=== PATIENT | female | born 1950 | race Caucasian/White ===

== ENCOUNTER 2018-06-05 06:39 | Inpatient (IN) | payer OTHER ==
[~2018-06-05] VITALS: Ht 165.1 cm; Wt 131.6 kg
--- NOTE | ~2018-06-05 | PATH ---
[facility] [address] [place] [address] PATHOLOGY RPT PROCEDURE Name: GEOVANNY ESTEBAN Room #: 349-I [facility] IN .R.#: [id number] Admission: 06/13/18 Date of : 46 Discharge: 06/17/18 Report #: [id number] Path Case #: [id number] [facility] Accession Number: [id number] . 01 Material submitted: . GASTRIC SLEEVE . 01 Clinical history: . Morbid obesity . 02 Diagnosis: Stomach, partial stomach, laparoscopic sleeve gastrectomy: - Mild congestion and reactive changes, history of morbid obesity. - Negative for intestinal metaplasia, atrophy or dysplasia. (IUV:pit 06/16/2018) QTP/06/16/2018 . 02 Electronically signed: . Anay Carrizales MD, Pathologist NPI- [id number] . 01 Gross description: . The specimen is received in formalin, labeled "Yfn Esteban, gastric sleeve", is a portion of stomach measuring 21.5 x 5.5 x 2.0 cm The margin is closed by a staple line. The serosa is read-pink and smooth. The rugae folds are read-pink. No discrete polyps, ulcers or masses identified. Core Dropper tissue is submitted in A1-A3. (SWS; 06/13/2018) SHS/SHS . 02 Pathologist provided ICD-10: K31.89, E66.01 . 02 CPT . 700688 Specimen Comment: A courtesy copy of this report has been sent to Specimen Comment: [phone], . Specimen Comment: Report sent to / DR PERES Specimen Comment: A duplicate report has been generated due to demographic updates. Performed at: 01 [place] [id number] [id number] MD Connor Navarro MD Phone: [phone] Performed at: [address] [id number] [address] [address] PATHOLOGY RPT PROCEDURE Name: TIMMY ESTEBANLEY Room #: 349-I DIS IN M.R.#: [id number] Admission: 06/13/18 Date of : 46 Discharge: 06/17/18 Report #: [id number] Path Case #: [id number] MD Anay Carrizales MD Phone: [phone]
--- NOTE | ~2018-06-05 | EKG ---
[address] [address] ELECTROCARDIOGRAM REPORT Name: GEOVANNY CROOK Room #: 349-I ADM IN M.R.#: [id number] Admission: 06/13/18 Attend Phys: Abel Khan MD, F Discharge: Date of : 46 Report #: [id number] THIS REPORT FOR: //name// [facility] Test Date: 2018-06-13 Test Time: 15:09:37 Pat Name: GEOVANNY CROOK Department: Room: 349 Gender: F Sheet Roller Operator: THADDEUS : 1950 Requested By: Abel Khan Order Number: [id number] MD: Barney Mathis Measurements Intervals [place] Rate: 78 P: 64 [place]: 175 QRS: 46 QRSD: 90 T: 43 QT: 415 QTc: 473 Interpretive Statements Sinus rhythm Low voltage, precordial leads Borderline T abnormalities, anterior leads Baseline wander in lead(s) V2 No previous ECG available for comparison Electronically Signed On 06-15-2018 20:18:46 INVENTORY MANAGEMENT SPECIALIST by Barney Mathis [email or web address] <ELECTRONICALLY SIGNED> By: Barney Mathis MD 06/15/182017 1509 1509 Barney Mathis MD /JULIANA
--- NOTE | ~2018-06-05 | HC ---
[facility] [place] [address] CONSULTATION Name: GEOVANNY CROOK Room #: 349-I ADM IN .R.#: [id number] Admission: 06/13/18 Attend Phys: Abel Khan MD, F Discharge: Date of : 48 Report #: [id number] THIS REPORT FOR: //name// CC: FAM unknown SUNDAY JAZMÍN DO Abel Khan DATE OF SERVICE: 06/15/2018 HISTORY OF PRESENT ILLNESS: The patient is a 68-year-old single white female who I was asked to see in the hospital after she developed atrial fibrillation. The history is obtained from the patient as well as the current chart. No old records available. The patient has a long history of heart disease. She apparently had a stent placed in the right coronary artery in 2013 at [place]. She has been followed by my partner, Dr. Vinny Bradley. She is not very active because of her large size. She is 5 feet 5 inches and weighs almost 280 pounds. She has a long history of intermittent atrial fibrillation. She apparently failed radiofrequency ablation at in the past. She has been chronically anticoagulated. She apparently had a stroke in the past and was given TPA at [facility], has a residual only drooping of the right lip. At the time of stroke, she was found to have a small meningioma which was not operated on. Because of the obesity, the patient was referred for bariatric surgery. She apparently had a nuclear stress test 6 months ago, showed no significant ischemia. She apparently saw Dr. Bradley recently prior to surgery and he recommended switching from Long acting diltiazem to metoprolol tartrate prior to surgery. She was taken off Eliquis 3 days prior to surgery. She was taken off of aspirin 4 days prior to surgery. She was admitted to [facility] 2 days ago and underwent bariatric surgery by Dr. Khan. She apparently tolerated the surgery well. However, after surgery, she went in atrial fibrillation. Cardiology consultation was requested. She does have occasional chest burning, although it is nonexertional and no radiation of the pain. She has had no increasing shortness of breath. She does get short of breath with exertion. She does note the irregular heartbeat and has had no lightheadedness or syncope. She has had no increased edema. PAST MEDICAL HISTORY: Otherwise significant for hysterectomy, cholecystectomy, hypertension, hyperlipidemia. MEDICATIONS AT HOME: Include Eliquis which was stopped 4 days ago, Multaq twice a day, potassium, spironolactone, lisinopril, aspirin, metoprolol tartrate. She does wear a CPAP for sleep apnea. ALLERGIES: She has previous intolerance to MORPHINE and PENICILLIN. FAMILY HISTORY: Positive for heart disease. [address] [address] CONSULTATION Name: GEOVANNY CROOK [facility] M.R.[facility] [id number] Admission: 06/13/18 Attend Phys: Abel Khan MD, F Discharge: Date of : 46 Report #: [id number] SOCIAL HISTORY: She is , lives in [place] by herself. Quit smoking years ago. No alcohol abuse. REVIEW OF SYSTEMS: She has had no history of asthma, peptic ulcer disease, liver disease, kidney disease, psychiatric illness or chronic skin condition. PHYSICAL EXAMINATION: GENERAL: Revealed an obese elderly female sitting in bed. She appeared in no acute distress. VITAL SIGNS: Showed a blood pressure of 140/60, pulse 70. She is afebrile. HEENT: She was anicteric, conjunctiva pink. Mucous membranes moist. NECK: Veins difficult to assess due to obesity. CHEST: Clear to auscultation. CARDIAC: Regular rate and rhythm. ABDOMEN: Obese, soft, nontender. EXTREMITIES: Had trace edema. SKIN: Cool and dry. NEUROLOGIC: Nonfocal. LABORATORY DATA: Her ECG on admission showed a sinus rhythm. Last night, the patient went into a rapid atrial fibrillation. Today, she appears to be in sinus rhythm. Her workup so far, she had lab work yesterday, BUN 20, creatinine 1.6, glucose 136. Troponin 0.06. White blood cell count 10.7, hemoglobin 13.9. IMPRESSION AND RECOMMENDATIONS: 1. Atrial fibrillation. I would recommend resuming Multaq, metoprolol. I would resume Eliquis when felt to be okay from surgery standpoint. 2. Hypertension. The patient has been on beta gabriella. 3. Coronary artery disease. Previous stent. 4. Obesity. Previous bariatric surgery. 5. History of meningioma. 6. Previous stroke. The patient is anticoagulated. By: [id number] Fermín Torres MD, FACC /nt
--- NOTE | ~2018-06-05 | EKG ---
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
--- NOTE | ~2018-06-05 | EKG ---
[place] [address] [place] [address] ELECTROCARDIOGRAM REPORT Name: GEOVANNY CROOK Room #: 349-I ADM IN M.R.#: [id number] Admission: 06/13/18 Attend Phys: Abel Khan MD, F Discharge: Date of : 46 Report #: [id number] THIS REPORT FOR: //name// [facility] Test Date: 2018-06-17 Test Time: 08:11:10 Pat Name: GEOVANNY CROOK Department: Room: 349 I Gender: F Cost Recovery Technician: ZACHARIAH : 1950 Requested By: Fermín Torres Order Number: [id number] MD: Olivier Peter Measurements Intervals [place] Rate: 60 P: 47 OR: 167 QRS: 43 QRSD: 100 T: 72 QT: 456 QTc: 456 Interpretive Statements Sinus rhythm Low voltage, precordial leads Borderline T abnormalities, anterior leads Compared to ECG 06/14/2018 22:50:47 Atrial fibrillation no longer present Electronically Signed On 06-17-2018 9:25:41 SWIM INSTRUCTOR by Olivier Peter [email or web address] <ELECTRONICALLY SIGNED> By: Olivier Peter MD, [facility] 06/17/18924 0 0 Olivier Peter MD, [facility] /EPI
--- NOTE | ~2018-06-05 | EKG ---
[address] [place] [address] ELECTROCARDIOGRAM REPORT Name: GEOVANNY CROOK Room #: 349-I ADM IN M.R.#: [id number] Admission: 06/13/18 Attend Phys: Abel Khan MD, F Discharge: Date of : 48 Report #: [id number] THIS REPORT FOR: //name// [facility] Test Date: 2018-06-14 Test Time: 22:50:47 Pat Name: GEOVANNY CROOK Department: Room: 349 Gender: F X Ray Service Technician: : 1950 Requested By: Mia Portillo Order Number: [id number] MD: Barney Mathis Measurements Intervals [place] Rate: 147 P: [place]: QRS: 49 QRSD: 80 T: -1 QT: 299 QTc: 468 Interpretive Statements Atrial fibrillation Low voltage, precordial leads Borderline T abnormalities, inferior leads No previous ECG available for comparison Electronically Signed On 06-15-2018 20:45:16 WET COTTON FEEDER by Barney Mathis [email or web address] <ELECTRONICALLY SIGNED> By: Barney Mathis MD 06/15/182044 49 49 Barney Mathis MD /JULIANA
--- NOTE | ~2018-06-05 | O ---
[facility] [place] [address] [place] [address] OPERATIVE REPORT Name: GEOVANNY CROOK Room #: 349-I ADM IN M.R.#: [id number] Admission: 06/13/18 Attend Phys: Abel Khan MD, F Discharge: Date of : 48 Report #: [id number] THIS REPORT FOR: //name// CC: Sidra Khan MD SURGEON: Abel Khan MD SUPERVISOR FISH BAIT PROCESSING: Michael Mace DO PREOPERATIVE DIAGNOSES: 1. Morbid obesity (body mass index 46). 2. Obstructive sleep apnea. 3. Atrial fibrillation/atrial flutter. 4. History of cerebrovascular accident. 5. Coronary artery disease. 6. Hyperlipidemia. POSTOPERATIVE DIAGNOSES: 1. Morbid obesity (body mass index 46). 2. Extensive intra-abdominal adhesions. 3. Recurrent incarcerated incisional ventral hernia. 4. Obstructive sleep apnea. 5. Atrial fibrillation/atrial flutter. 6. History of cerebrovascular accident. 7. Coronary artery disease. 8. Hyperlipidemia. PROCEDURES: 1. Laparoscopic sleeve gastrectomy with EGD. 2. Extensive laparoscopic lysis of adhesions. 3. Laparoscopic primary repair of recurrent incarcerated incisional ventral hernia. ANESTHESIA: General endotracheal anesthesia and local anesthetic. ESTIMATED BLOOD LOSS: 5 mL. SPECIMEN: Lateral stomach. COMPLICATIONS: None appreciated. INDICATIONS FOR PROCEDURE: This is a 68-year-old female patient of Dr. Sidra Tom and Dr. Vinny Bradley, who stands 5 feet 5 inches and weighed 291 pounds at her last office visit with a BMI of 46.3. Her maximum weight is 295 pounds. The patient has had difficulty with her weight for as long as she can [facility] [address] [place] [address] OPERATIVE REPORT Name: GEOVANNY CROOK Room #: 349-I ADM IN .R.#: [id number] Admission: 06/13/18 Attend Phys: Abel Khan MD, F Discharge: Date of : 46 Report #: [id number] remember. She has tried numerous weight loss programs and plans including specialized diets such as Weight Watchers and specialized exercises. The most weight she has lost is 40 pounds. Any amount of weight she has lost, she has quickly regained plus additional weight after stopping the modality. The patient has weight associated comorbid conditions as listed above. She has been cleared from a multidisciplinary standpoint for bariatric surgery. She presents today for laparoscopic sleeve gastrectomy with EGD. OPERATIVE FINDINGS: On EGD, the patient had a normal appearing esophagus down the GE junction and Z-line. The stomach and duodenum were without polyps, masses, diverticula, or ulcers. On retroflexion of the scope, there was no evidence for a hiatal hernia. Upon entrance into the abdominal cavity, the patient had significant intra-abdominal adhesions involving the midline and bilateral subcostal incision. At the apex of the midline incision, where it met up with the subcostal incision, two 1 cm defects were present that contained intra-abdominal and abdominal wall fat with no bowel involvement. Extensive lysis of the adhesions was necessary in order to place the laparoscopic ports. The stomach was enlarged. The liver, small bowel, and colon in the surrounding area appeared otherwise normal with no other significant intra-abdominal pathology. The sleeve staple line was located 4 cm lateral/proximal to the pylorus, 3 cm lateral to the incisura of the stomach, and 1 cm lateral to the GE junction. Immediately after applying Tisseel to the gastric sleeve staple line, the gastroscope was used to gently insufflate carbon dioxide into the stomach/sleeve whereby no air bubbles were seen forming in the Tisseel, indicative of a negative leak test. Endoluminally, the sleeve had a smooth contour with no hemorrhage. The excised stomach held 1000 mL on the backtable. DESCRIPTION OF PROCEDURE IN DETAIL: After the risks, benefits, and expectations of the operation were discussed in detail with the patient, informed consent was obtained. The patient was identified in the preoperative holding area. She was given IV antibiotics as documented in the chart in line with [facility] metrics. The patient was then taken to the operating room and she was placed in the supine position. SCDs were placed on the patient's bilateral lower extremities and pneumatic compression was initiated. The patient was then given IV sedation and she was intubated without incident. An orogastric tube and bite block were placed by Anesthesia under my direction without difficulty. The patient was placed in the low lying dorsal lithotomy position [facility]. Her abdomen was prepped and draped in the standard sterile fashion. A time-out was performed to identify the correct patient and procedure. [address] [address] OPERATIVE REPORT Name: GEOVANNY CROOK Room #: 349-I ADM IN M.R.#: [id number] Admission: 06/13/18 Attend Phys: Abel Khan MD, F Discharge: Date of : 46 Report #: [id number] EGD was performed first. The gastroscope was inserted into the patient's oropharynx and then passed down the esophagus into the stomach and beyond the pylorus to the third portion of the duodenum. The scope was then slowly withdrawn. With the scope withdrawn into the antrum, the scope was retroflexed and a retrograde view of the cardia was seen. The scope was then straightened and slightly withdrawn. It was left within the stomach to serve as a 34-Chinese bougie. The stomach was then decompressed with the orogastric tube. Local anesthetic was infiltrated into the skin and subcutaneous tissue in the left mid abdomen where a small transverse incision was made. A 5 mm Visiport was placed intraperitoneally with a 0-degree angled laparoscope. Pneumoperitoneum was achieved with insufflation of carbon dioxide to 15 mmHg. A 30-degree angled laparoscope was then inserted. Additional 5 mm ports were placed at the left supraumbilical area as well as left lateral abdomen under direct visualization after local anesthetic was infiltrated into the skin and subcutaneous tissue and appropriately sized incisions were made. Operative findings were as noted above. The omental adhesions to the anterior abdominal wall were carefully taken down with blunt dissection and judicious use of the ultrasonic dissector after ensuring no bowel involvement. Dissection was carried across the midline where an appropriate area was chosen for placement of the 15 mm ports. The port was placed under direct visualization using the same technique. Additional adhesions were taken down in the left upper quadrant in a similar fashion. Again, there was no bowel involvement. After appropriate takedown of the adhesions, placement of the Portia liver retractor was undertaken next. A subxiphoid transverse 5 mm incision was made after local anesthetic was infiltrated into the skin and subcutaneous tissue. The Portia liver retractor was advanced transfascially after creating passageway with a 5 mm obturator. The retractor was held in place with the Iron Refrigerating Engineer Head apparatus. The patient was placed in the reverse Trendelenburg position. The gastroscope was adjusted by Anesthesia under my direction such that the scope would lie along the lesser curvature of the stomach and again would serve as a 34-Chinese bougie. The gastrosplenic ligament and short gastric vessels were then carefully divided with the ultrasonic dissector with good hemostasis along the greater curvature of the stomach up to the GE junction. There was no evidence for hiatal hernia. The gastrocolic ligament was divided in a similar fashion down to an area that was measured to be 4 cm lateral/proximal to the pylorus. The stomach was then rotated medially to ensure no posterior attachments were present. The gastroscope was adjusted by Anesthesia one final time and the orogastric tube was removed under my direction. The gastric sleeve was then created with a 60 mm powered endoscopic RAMOS stapler. All staple loads were buttressed with Mary Jo-Strips. The staple line started distally, moving proximally. The initial two firings were with black loads with the remaining loads being green loads. [address] [address] OPERATIVE REPORT Name: GEOVANNY CROOK Room #: 349-I [facility] IN .R.#: [id number] Admission: 06/13/18 Attend Phys: Abel Khan MD, F Discharge: Date of : 46 Report #: [id number] After transection of the lateral stomach, it was removed through the 15 mm port site. An 0 PDS suture was then placed with the Darvin laparoscopic fascial closure device. The suture was tagged and the port was replaced. The leak test was performed next. A 10 mL of Tisseel was evenly applied to the gastric sleeve staple line using the Truviso aerosolizer. Immediately after doing so, the gastroscope was used to gently insufflate air into the sleeve and slowly withdrawn the scope. No air bubbles were seen forming within the Tisseel laparoscopically. Other findings were as noted above. The scope was fully withdrawn. Primary repair of the incarcerated recurrent incisional ventral hernia was undertaken next. This was attempted to have been repaired in the past, although no mesh was present in this area. The intra-abdominal fat and abdominal wall fat that were incarcerated within the two small defects were carefully dissected free and fully reduced. The fascial edges were then skeletonized and well visualized. [id number]-[id number] 0 PDS sutures were placed x 2 to close the defects. The sutures were tied under direct visualization with good closure after decreasing the intra-abdominal pressure to 10 mmHg. The 15 mm port was then removed and the suture was tied under direct visualization to ensure no incorporation of intra-abdominal content. The abdominal cavity was then desufflated and the ports were removed. Interrupted subcuticular 4-0 Monocryl sutures and Dermabond were used to close the skin incisions. The patient tolerated the procedure well. She was awakened, extubated, and taken to the recovery room in stable condition with no apparent intraoperative complications. <ELECTRONICALLY SIGNED> By: Abel Khan MD, FACS 06/15/18 2218 1444 1526 Abel Khan MD, FACS /nt
[2018-06-11] MEDS ORDERED: CEFUROXIME250 MG PO (10:09)
[2018-06-11] MEDS ORDERED: ELIQUIS2.5 MG PO (10:10)
[2018-06-11] MEDS ORDERED: MULTAQ400 MG PO (10:11)
[2018-06-11] MEDS ORDERED: POTASSIUM20 PO (10:11)
[2018-06-11] MEDS ORDERED: SPIRONOLACTONE25 M1 PO (10:11)
[2018-06-11] MEDS ORDERED: LOPRESSOR50 MG PO (10:11)
[2018-06-11] MEDS ORDERED: LISINOPRIL20 MG PO (10:12)
[2018-06-11] MEDS ORDERED: CHILDREN'S ASPI81 M1 PO (10:12)
[2018-06-11] MEDS ORDERED: FLONASE 0.05%50 MCG NASAL (10:16)
[2018-06-11] MEDS ORDERED: UNICOMPLEX M TA1 TA1 PO (10:41)
[2018-06-11] MEDS ORDERED: CRANBERRY300 MG PO (10:42)
[2018-06-11] MEDS ORDERED: OMEGA-31000 M1 PO (10:46)
[2018-06-11] MEDS ORDERED: CALCIUM MAGNES1 EACH PO (10:46)
[2018-06-11] MEDS ORDERED: VITAMIN B-12500 MCG PO (10:47)
[2018-06-11] MEDS ORDERED: LOPRESSOR100 M1 PO (11:01)
[2018-06-13 08:36] VITALS: BP 127/59
[2018-06-13 14:34] VITALS: BP 130/61
[2018-06-13 22:49] VITALS: BP 147/44
[2018-06-14 05:49] LABS: ABSOLUTE NEUTROPHILS 9.5 thou/uL (1.4-8.2); BASOPHILS 0.1 % (0.0-2.0); HEMATOCRIT 40.2 % (37.0-47.0); HEMOGLOBIN 13.9 gm/dL (12.0-15.0); LYMPHOCYTES 6.5 % (24.0-44.0); MCH 30.3 pg (26.0-34.0); MCHC 34.6 g/dL (28.0-37.0); MCV 87.5 fL (80.0-100.0); PLATELET COUNT 161 thou/uL (150-400); POLYS 89.4 % (36.0-66.0); RBC 4.59 mil/uL (4.20-5.00); RDW 13.5 % (10.5-14.5); WBC 10.7 thou/uL (4.0-11.0)
[2018-06-14 05:55] VITALS: BP 133/49
[2018-06-14 06:16] LABS: ALBUMIN 3.3 g/dL (3.4-5.0); CALCIUM 8.9 mg/dL (8.5-10.1); CREATININE 1.6 mg/dL (0.6-1.0); POTASSIUM 4.8 mmol/L (3.5-5.1); TOTAL BILIRUBIN 0.3 mg/dL (<0.1-1.0); TOTAL PROTEIN 6.5 g/dL (6.4-8.2)
[2018-06-14 07:05] VITALS: BP 113/49
[2018-06-14 07:28] VITALS: BP 148/43
[2018-06-14 08:43] LABS: TROPONIN-I <0.06 ng/mL (<0.06)
[2018-06-14 20:00] VITALS: BP 137/64
[2018-06-15] VITALS (7 sets, daily range): BP systolic 136–155; BP diastolic 56–67
[2018-06-16] VITALS (8 sets, daily range): BP systolic 87–147; BP diastolic 45–93
[2018-06-16 05:57] LABS: ANION GAP 5 mmol/L (7-16); BUN 15 mg/dL (7-18); CALCIUM 8.8 mg/dL (8.5-10.1); CHLORIDE 100 mmol/L (98-107); CHOLESTEROL 175 mg/dL (<200); CO2 33 mmol/L (21-32); CREATININE 1.1 mg/dL (0.6-1.0); GLUCOSE 92 mg/dL (74-106); HDL CHOLESTEROL 38 mg/dL (>40); LDL CHOLESTEROL 114 mg/dL (<100); POTASSIUM 3.9 mmol/L (3.5-5.1); SODIUM 138 mmol/L (136-145); TC:HDL 4.6 Ratio (Not establshd); TRIGLYCERIDE 119 mg/dL (<150); VLDL 24 mg/dL (<40)
[2018-06-16 05:58] LABS: SERUM ASSESSMENT Clear
[2018-06-17 03:30] VITALS: BP 109/51
[2018-06-17 07:17] VITALS: BP 124/48
[2018-06-17 10:25] VITALS: BP 124/48
[2018-06-17 11:36] VITALS: BP 151/58
[2018-06-17 11:40] VITALS: BP 125/90
[2018-06-17] MEDS ORDERED: CARDIZEM30 MG PO (12:24)
[2018-06-17] MEDS ORDERED: SORINE 80 MG TA80 M1 PO (12:24)
[2018-06-17] MEDS ORDERED: PEPCID20 MG PO (12:24)
== END 2018-06-17 13:51 | disposition home health service (06) | DRG 619 ==
LOC: PRE 06:39 → 3W 06-13 05:19 → TBA 06-13 05:19 → 4E 06-13 13:39 → PRE 06-13 15:48 → 3W 06-14 23:56
PROVIDERS: Internal Medicine Cardiovascular Disease; Surgery
PROC: 0DB64Z3 Excision of Stomach, Percutaneous Endoscopic Approach, Vertical (ICD-10-PCS; principal; 2018-06-13)
PROC: 0DNU4ZZ Release Omentum, Percutaneous Endoscopic Approach (ICD-10-PCS; principal; 2018-06-13)
PROC: 0WQF4ZZ Repair Abdominal Wall, Percutaneous Endoscopic Approach (ICD-10-PCS; principal; 2018-06-13)
DX: E66.01 Morbid (severe) obesity due to excess calories (principal); N17.0 Acute kidney failure with tubular necrosis; K43.0 Incisional hernia with obstruction, without gangrene; I48.92 Unspecified atrial flutter; I48.0 Paroxysmal atrial fibrillation; Z68.42 Body mass index [BMI] 45.0-49.9, adult; I10 Essential (primary) hypertension; E78.5 Hyperlipidemia, unspecified; K66.0 Peritoneal adhesions (postprocedural) (postinfection); I25.10 Atherosclerotic heart disease of native coronary artery without angina pectoris; G47.33 Obstructive sleep apnea (adult) (pediatric); R07.89 Other chest pain; K21.9 Gastro-esophageal reflux disease without esophagitis; I48.2 Chronic atrial fibrillation; F32.9 Major depressive disorder, single episode, unspecified; Z95.5 Presence of coronary angioplasty implant and graft; Z87.891 Personal history of nicotine dependence; Z90.49 Acquired absence of other specified parts of digestive tract; Z90.710 Acquired absence of both cervix and uterus; Z86.73 Personal history of transient ischemic attack (TIA), and cerebral infarction without residual deficits; Z79.82 Long term (current) use of aspirin; Z79.899 Other long term (current) drug therapy; Z88.0 Allergy status to penicillin; Z88.5 Allergy status to narcotic agent; Z82.49 Family history of ischemic heart disease and other diseases of the circulatory system; Z83.3 Family history of diabetes mellitus; Z80.6 Family history of leukemia; Z83.6 Family history of other diseases of the respiratory system
CPT/HCPCS: 10779; 10783; 10879; 50010; 50101; 50222; 50249; 50386; 50555; 50739; 50740; 50962; 51437; 52182; 52265; 53307; 53311; 54022; 54118; 55245; 56462; 56525; 56526; 57092; 62110; 62900; 70005